=== PATIENT | female | born 1970 | race Caucasian/White ===

== ENCOUNTER 2016-11-28 21:50 | Emergency (ER) | payer SELFPAY ==
[~2016-11-28 21:50] MED LIST: ALBUTEROL SULF8.5 GM IH; AMOXICILLIN875 MG PO; BACTRIM DS1 TA1 PO; BACTRIM DS1 TAB PO; BACTRIM1 TAB PO; COMPAZINE10 MG PO; DELTASONE10 MG PO; FLONASE16 G1; KEFLEX500 M2 PO; KEFLEX500 MG PO; LEVAQUIN500 MG PO; LEVAQUIN750 MG PO; NORCO 5/325 TAB1 TAB PO; NORCO 5/3251 TAB PO; OMEPRAZOLE20 M2 PO; OMEPRAZOLE20 MG PO; PEPCID AC20 M1 PO; PHENERGAN25 MG PO; ZITHROMAX250 MG PO; ZOFRAN4 MG PO
[2016-11-28 22:58] LABS: BASO % 0.4 % (0-2); EOSINOPHIL ABSOLUTE COUNT 0.3 tho/cmm (0.0-0.7); HCT-HEMATOCRIT 37.9 % (34.0-49.0); HGB-HEMOGLOBIN 13.3 gm/dl (12.0-15.5); IMMATURE GRANULOCYTES ABSOLUTE 0.01 tho/cmm (0-0.03); IMMATURE GRANULOCYTES PERCENT 0.1 % (0-0.3); LYMPH % 32.9 % (20-45); LYMPH ABSOLUTE COUNT 2.5 tho/cmm (0.8-4.5); MCH (MEAN CORPUSCULAR HGB) 30.4 pg (28.0-32.0); MCHC MEAN CORPUSCULAR HGB CONC 35.1 % (32.0-36.0); MCV (MEAN CELL VOLUME) 86.5 fl (82.0-96.0); MONO % 7.2 % (0-12); MONOCYTE ABSOLUTE COUNT 0.6 tho/cmm (0.0-1.2); NEUTROPHIL ABSOLUTE COUNT 4.3 tho/cmm (1.6-8.0); NEUTROPHIL-AUTOMATED 4.3 tho/cmm (1.6-8.0); NEUTROPHILS % 55.4 % (40-80); PLATELET COUNT 200 tho/cmm (150-450); RED BLOOD COUNT 4.38 mil/cmm (4.00-5.20); RED CELL DISTRIBUTION WIDTH 12.7 % (12.4-16.4); WHITE BLOOD COUNT 7.7 tho/cmm (4.0-10.0)
[2016-11-28 23:09] LABS: ANION GAP 11 mmol/L (0-20); BLOOD UREA NITROGEN 16 mg/dl (6-24); CALCIUM 8.7 mg/dl (8.5-10.5); CARBON DIOXIDE-VENOUS 26 mmol/L (22-32); CHLORIDE 107 mmol/l (96-110); CREATININE 1.16 mg/dl (0.50-1.10); GLUCOSE 124 mg/dL (70-110); POTASSIUM 3.7 mmol/L (3.7-5.1); SODIUM 140 mmol/L (135-145); eGFR VALUE FOR BLACK 64 mL/Min
[2016-11-28] MEDS ORDERED: NORCO 5-325 TA1 EACH PO (23:52)
== END 2016-11-29 00:34 ==
LOC: EDMED 21:50
PROVIDERS: Emergency Medicine
DX: R07.89 Other chest pain (principal); K21.9 Gastro-esophageal reflux disease without esophagitis; Z98.890 Other specified postprocedural states; Z90.49 Acquired absence of other specified parts of digestive tract; Z79.899 Other long term (current) drug therapy; F17.200 Nicotine dependence, unspecified, uncomplicated
CPT/HCPCS: J1200; J2765